=== PATIENT | male | born 1990 | race African-American/Black ===

== ENCOUNTER 2016-04-01 17:37 | Emergency (ER) | payer SELFPAY ==
--- NOTE | 2016-04-01 17:41 | ER Document Report ---
ED Medical Screen (RME) - General Stated Complaint: STOMACH PAIN Mode of Arrival: Ambulatory Information source: Patient Notes: pt c/o abd pain after eating for the past 10 days. Pt denies any fever. TRAVEL OUTSIDE OF THE [place] IN LAST 30 DAYS: No - Related Data Allergies/Adverse Reactions: No Known Allergies Allergy (Verified 11/29/12 18:39) Past Medical History Pulmonary Medical History: Reports: Hx Asthma Musculoskeltal Medical History: Reports Hx Musculoskeletal Trauma - injured right knee in the 3 years ago - Immunizations Immunizations up to date: Yes Hx Diphtheria, Pertussis, Tetanus Vaccination: Yes - unsure of date Physical Exam - Abdominal Tenderness: Tender - epig
--- NOTE | 2016-04-01 18:06 | ER Document Report ---
ED GI/ - General Chief Complaint: Epigastric Pain Stated Complaint: STOMACH PAIN Mode of Arrival: Ambulatory Notes: The patient is a 25-year-old male who presents with epigastric pain for 1.5 weeks whenever he eats. He is also having mild nausea and vomited once. No longer feels nauseous. He is also having bilateral lower back pain for several weeks. He is taking Motrin to help with the back pain, but his gastric pain is worsening. He denies diarrhea, constipation, hematuria, hematemesis, rash, chest pain, shortness of breath, abdominal distention, urinary symptoms, saddle anesthesia, change in bowel or bladder, numbness, tingling or difficulty walking. TRAVEL OUTSIDE OF THE [place] IN LAST 30 DAYS: No - Related Data Allergies/Adverse Reactions: No Known Allergies Allergy (Verified 04/01/16 17:42) Past Medical History - General Information source: Patient - Social History Smoking Status: Unknown if Ever Smoked Chew tobacco use (# tins/day): Yes Frequency of alcohol use: Rare Drug Abuse: None Family History: DM, Malignancy Patient has suicidal ideation: No Patient has homicidal ideation: No Pulmonary Medical History: Reports: Hx Asthma Musculoskeltal Medical History: Reports Hx Musculoskeletal Trauma - injured right knee in the 3 years ago - Immunizations Immunizations up to date: Yes Hx Diphtheria, Pertussis, Tetanus Vaccination: Yes - unsure of date Physical Exam - Vital signs Vitals: Temp Pulse Resp BP Pulse Ox 98.0 F 98 20 144/80 H 98 04/01/16 17:42 04/01/16 17:42 04/01/16 17:42 04/01/16 17:42 04/01/16 17:42 - Notes Notes: REVIEW OF SYSTEMS: CONSTITUTIONAL: -fevers, -chills EENT: Denies eye, ear, throat, or mouth pain or symptoms. Denies nasal or sinus congestion. CARDIOVASCULAR: Denies chest pain, syncope. RESPIRATORY: Denies cough, cold, or chest congestion. Denies shortness of breath, difficulty breathing, or wheezing. GASTROINTESTINAL: +abdominal pain, nausea, vomiting, -diarrhea -constipation. GENITOURINARY: Denies difficulty urinating, painful urination, burning, frequency, or blood in urine. MUSCULOSKELETAL: +back pain, Denies neck pain or joint pain or swelling. SKIN: Denies rash or skin lesions. HEMATOLOGIC: Denies easy bruising or bleeding. LYMPHATIC: Denies swollen, enlarged glands. NEUROLOGICAL: Denies altered mental status or loss of consciousness. Denies headache. Denies weakness or paralysis or loss of use of either side. Denies problems with gait or speech. Denies sensory or motor loss. PSYCHIATRIC: Denies anxiety or stress or depression. ALL OTHER SYSTEMS REVIEWED AND NEGATIVE. Course - Re-evaluation Re-evalutation: Patient's labs and ultrasound are unremarkable. After GI cocktail, patient feels much better. No red flag signs for low back pain. Will treat patient with lidocaine patches and omeprazole with follow-up as primary care physician and GI as needed. - Vital Signs Vital signs: Temp Pulse Resp BP Pulse Ox 98.0 F 98 20 144/80 H 98 04/01/16 17:42 04/01/16 17:42 04/01/16 17:42 04/01/16 17:42 04/01/16 17:42 - Laboratory Result Diagrams: 04/01/16 17:56 04/01/16 17:56 Laboratory results interpreted by me: 04/01/16 17:56 Total Bilirubin 1.5 H Total Protein 8.3 H Albumin 5.1 H Discharge - Discharge Clinical Impression: Epigastric pain Back pain Qualifiers: Back pain location: low back pain Chronicity: chronic Back pain laterality: bilateral Sciatica presence: without sciatica Qualified Code(s): M54.5 - Low back pain; G89.29 - Other chronic pain Condition: Good Disposition: HOME, SELF-CARE Additional Instructions: Gastritis You have an inflammation of the stomach called gastritis. This commonly causes upper abdominal pain, nausea, and vomiting. In severe cases, bleeding of the stomach lining can occur. Gastritis can be caused by bacteria or viruses , alcohol, or stomach-irritating drugs. Begin with sips of clear liquids. Take increasing amounts of fluid over the first 24 hours. Then start small amounts of bland foods (such as dry toast , applesauce, mashed potato). Gradually resume your usual diet. You should take antacids every two hours until the pain has subsided. Acid -suppressing drugs may be prescribed as well. Avoid aspirin, caffeine, tobacco , and alcohol. If the abdominal pain worsens, or there is evidence of major bleeding in the stomach (such as black, tarry stool, bloody or black vomit, or lightheadedness), you should return immediately. Call the doctor if you aren't improved in 24 to 36 hours. LOW BACK PAIN: Three out of every four people will have an episode of disabling back pain during their lifetime. Most commonly the pain is due to straining of the muscles and ligaments in the low back. Usual treatment includes: (1) Rest on a firm surface. Avoid lying on your stomach. (2) Ice pack the painful area. After a few days, gentle heat may be used intermittently to relax the area, or ice packs can be continued. (3) Medication may be needed -- muscle relaxers and antiinflammatory medicines are commonly used. (4) As the back improves, exercises are prescribed to strengthen the back and abdominal muscles. Your doctor will advise you on the proper care for your back at each stage in your recovery. You may be better in a few days -- or healing may take several weeks. If new symptoms of a "herniated disc" (radiation of pain, numbness, or tingling down the back of the leg or weakness in the leg) occur, you should be re-examined. Further testing may be necessary. ICE PACKS: Apply ice packs frequently against the painful area. Many different schedules are recommended, such as "20 minutes on, 20 minutes off" or "one hour ice, two hours rest." If you need to work, you may need to go longer between ice treatments. You should plan to have the area ice packed AT LEAST one fourth of the time. The ice should be applied over the wrap, tape, or splint, or over a layer of cloth -- not directly against the skin. Some ice bags have a built-in cloth and can be put directly on the skin. WARM PACKS: After approximately two days, apply gentle heat (such as a heating pad or hot water bottle) for about 20 to 30 minutes about every two hours -- at least four times daily. Warmth and elevation will help you make a more rapid recovery , and will ease the pain considerably. Do not use HOT heat, and never apply heat for longer than 30 minutes. The continuous heat can invisibly damage skin and muscles -- even when no burn is seen on the surface. Damaged muscles can make you MORE sore. FOLLOW-UP CARE: If you have been referred to a physician for follow-up care, call the physician s office for an appointment as you were instructed or within the next two days. If you experience worsening or a significant change in your symptoms, notify the physician immediately or return to the Emergency Department at any time for re-evaluation. Prescriptions: Omeprazole 20 mg PO BID #30 capsule. Referrals: [facility] [Provider Group] - Follow up as needed
[2016-04-01 18:11] LABS: APPEARANCE,URINE CLEAR; BILIRUBIN,URINE NEGATIVE (NEGATIVE); GLUCOSE, URINE NEGATIVE (NEGATIVE); KETONES,URINE NEGATIVE (NEGATIVE); LEUKOCYTE ESTERASE,URINE NEGATIVE (NEGATIVE); NITRITE,URINE NEGATIVE (NEGATIVE); PROTEIN,URINE NEGATIVE (NEGATIVE); URINE SPECIFIC GRAVITY 1.002; UROBILINOGEN,URINE NEGATIVE mg/dL (<2.0)
[2016-04-01 18:25] LABS: ABSOLUTE EOSINOPHILS # (AUTO) 0.4 10^3/uL (0.0-0.6); ABSOLUTE LYMPHOCYTES (AUTO) 2.3 10^3/uL (0.5-4.7); ABSOLUTE MONOCYTES (AUTO) 0.6 10^3/uL (0.1-1.4); BASOPHILS % (AUTO) 0.5 % (0-2); EOSINOPHILS % (AUTO) 5.2 % (0-6); HEMATOCRIT 43.8 % (37.9-51.0); HEMOGLOBIN 14.9 g/dL (13.5-17.0); HGB HCT DIFFERENCE 0.9; LYMPHOCYTES % (AUTO) 31.6 % (13-45); MEAN CORPUSCULAR HEMOGLOBIN 28.9 pg (27.0-33.4); MEAN CORPUSCULAR VOLUME 85 fl (80-97); MONOCYTES % (AUTO) 8.4 % (3-13); RED BLOOD COUNT 5.15 10^6/uL (4.35-5.55); RED CELL DISTRIBUTION WIDTH 12.8 % (11.5-14.0); SEGMENTED NEUTROPHILS % (AUTO) 54.3 % (42-78); WHITE BLOOD COUNT 7.3 10^3/uL (4.0-10.5)
[2016-04-01 18:29] LABS: ALANINE AMINOTRANSFERASE 50 U/L (21-72); ALBUMIN 5.1 g/dL (3.5-5.0); ALKALINE PHOSPHATASE 78 U/L (38-126); ANION GAP 15 (5-19); ASPARTATE AMINO TRANSFERASE 47 U/L (17-59); BILIRUBIN,TOTAL 1.5 mg/dL (0.2-1.3); BLOOD UREA NITROGEN 8 mg/dL (7-20); CALCIUM 10.2 mg/dL (8.4-10.2); CARBON DIOXIDE 30 mmol/L (22-30); CHLORIDE 100 mmol/L (98-107); CREATININE RESULT 0.87 mg/dL (0.52-1.25); GLUCOSE 101 mg/dL (75-110); LIPASE 47.9 U/L (23-300); SODIUM 144.9 mmol/L (137-145); TOTAL PROTEIN 8.3 g/dL (6.3-8.2)
[2016-04-01] MEDS ORDERED: MAG HYDROX/AL HYDROX/SIMETH SUSP 30 ML UDCUP PO ONE (19:07)
[2016-04-01] MEDS ORDERED: METOCLOPRAMIDE HCL ORAL SOLN 10 MG/10 ML UDCUP PO ONE (19:07)
[2016-04-01] MEDS ORDERED: LIDOCAINE 2% VISCOUS SOLN 20 ML UDCUP PO ONE (19:07)
[2016-04-01 19:52] VITALS: BP 136/95
== END 2016-04-01 19:46 | disposition home or self-care (01) ==
LOC: ER 17:37
DX: R10.13 Epigastric pain (principal); M54.5 Low back pain; G89.29 Other chronic pain; R10.9 Unspecified abdominal pain; R11.2 Nausea with vomiting, unspecified
CPT/HCPCS: 99284; 36415; 83690; 85025; 80053; 81001; 76700; J3490

== ENCOUNTER 2016-11-25 16:11 | Emergency (ER) | payer SELFPAY ==
[2016-11-25] MEDS ORDERED: AZITHROMYCIN 250 MG TABLET PO ONE (16:37)
[2016-11-25] MEDS ORDERED: LIDOCAINE 1% INJ-PF (10 MG/ML) 30 ML SDV INJ ONE (16:37)
[2016-11-25] MEDS ORDERED: CEFTRIAXONE INJ 250 MG VIAL IM ONE (16:37)
[2016-11-25] MEDS ORDERED: PENICILLIN G BENZATHINE 1.2 MILLION UNIT/2 ML DISP.SYRIN IM ONE (16:37)
[2016-11-25] MEDS ORDERED: HYDROCODONE/ACETAMINOPHEN 5-325 MG TABLET PO ONE (16:38)
--- NOTE | 2016-11-25 16:41 | ER Document Report ---
HPI - HPI Patient complains to provider of: Wound to left groin Onset: Other Onset/Duration: Persistent - 4 days Quality of pain: Achy Pain Level: 4 Context: Patient complains of tender wound to left groin for the past 4 days. Patient states that he was squeezing on the lesion and had pus drained from the wound. Patient denies any fever. Associated Symptoms: Other - Left groin wound Exacerbated by: Denies Relieved by: Denies Similar symptoms previously: No Recently seen / treated by doctor: No - ROS ROS below otherwise negative: Yes Systems Reviewed and Negative: Yes All other systems reviewed and negative - CONSTITUTIONAL Constitutional: DENIES: Fever, Chills - NEURO Neurology: DENIES: Weakness - DERM Skin Color: Normal Notes: Draining wound to left groin area Past Medical History - General Information source: Patient - Social History Smoking Status: Never Smoker Frequency of alcohol use: Occasional Drug Abuse: None Occupation: Pest control Family History: DM, Malignancy - Medical History Medical History: Negative Pulmonary Medical History: Reports: Hx Asthma Renal/ Medical History: Denies: Hx Peritoneal Dialysis Musculoskeltal Medical History: Reports Hx Musculoskeletal Trauma - injured right knee in the 3 years ago Surgical Hx: Negative - Immunizations Immunizations up to date: Yes Hx Diphtheria, Pertussis, Tetanus Vaccination: Yes - unsure of date Vertical Provider Document - CONSTITUTIONAL Agree With Documented VS: Yes Exam Limitations: No Limitations General Appearance: WD/WN, No Apparent Distress - INFECTION CONTROL TRAVEL OUTSIDE OF THE [place] IN LAST 30 DAYS: No - HEENT HEENT: Atraumatic, Normocephalic - NECK Neck: Normal Inspection - RESPIRATORY Respiratory: Breath Sounds Normal, No Respiratory Distress O2 Sat by Pulse Oximetry: 97 - CARDIOVASCULAR Cardiovascular: Regular Rate, Regular Rhythm, No Murmur - GI/ABDOMEN Gastrointestinal: Abdomen Soft - REPRODUCTIVE Male Genitalia: Abnormal Inspection - Patient with draining wound to left inguinal area Notes: No scrotal tenderness, no penile drainage or discharge, KALA Govea as standby - MUSCULOSKELETAL/EXTREMETIES Musculoskeletal/Extremeties: MAEW - NEURO Level of Consciousness: Awake, Alert, Appropriate - DERM Integumentary: Warm, Dry, Abscess - left groin Course - Vital Signs Vital signs: Temp Pulse Resp BP Pulse Ox 98.9 F 66 16 141/90 H 97 11/25/16 16:13 11/25/16 16:13 11/25/16 16:13 11/25/16 16:13 11/25/16 16:13 Discharge - Discharge Clinical Impression: Elevated blood pressure reading, Abscess of groin, left Condition: Stable Disposition: HOME, SELF-CARE Instructions: Abscess ([facility]), Azithromycin ([facility]), Oral Narcotic Medication ([facility]) , Rocephin ([facility]), Trimethoprim-Sulfa ([facility]) Additional Instructions: Return immediately for any new or worsening symptoms Followup with your primary care provider, call tomorrow to make a followup appointment Cultures are pending, we will call if you need any different treatment Prescriptions: Hydrocodone/Acetaminophen [Mershon 5-325 Tablet] 1 each PO Q4 PRN #15 tablet PRN Reason: Sulfamethoxazole/Trimethoprim [Bactrim Ds Tablet] 1 each PO BID #20 tablet Forms: Elevated Blood Pressure, Return to Work Referrals: [facility] [Provider Group] - Follow up as needed
[2016-11-25 18:35] VITALS: BP 142/91
[2016-11-28] MEDS ORDERED: ZINC OXIDE 20% OINTMENT 28.35 GM TP ONE (00:01)
== END 2016-11-25 18:38 | disposition home or self-care (01) ==
LOC: ER 16:11
DX: L02.214 Cutaneous abscess of groin (principal); R03.0 Elevated blood-pressure reading, without diagnosis of hypertension
CPT/HCPCS: 99283; 96372; 36415; 87070; 87205; 87075; 87077; 86592; 87186; J3490; J0561; J0696

== ENCOUNTER 2017-02-09 16:01 | Emergency (ER) | payer SELFPAY ==
[2017-02-09 17:49] LABS: ABSOLUTE BASOPHILS # (AUTO) 0.1 10^3/uL (0.0-0.2); ABSOLUTE EOSINOPHILS # (AUTO) 0.2 10^3/uL (0.0-0.6); ABSOLUTE LYMPHOCYTES (AUTO) 2.8 10^3/uL (0.5-4.7); ABSOLUTE MONOCYTES (AUTO) 0.7 10^3/uL (0.1-1.4); ABSOLUTE NEUT (AUTO) 6.7 10^3/uL (1.7-8.2); BASOPHILS % (AUTO) 0.7 % (0-2); EOSINOPHILS % (AUTO) 1.6 % (0-6); HEMATOCRIT 47.4 % (37.9-51.0); HEMOGLOBIN 16.2 g/dL (13.5-17.0); HGB HCT DIFFERENCE 1.2; LYMPHOCYTES % (AUTO) 26.8 % (13-45); MEAN CORPUSCULAR HEMOGLOBIN 29.7 pg (27.0-33.4); MEAN CORPUSCULAR HGB CONC 34.1 g/dL (32.0-36.0); MEAN CORPUSCULAR VOLUME 87 fl (80-97); RED BLOOD COUNT 5.44 10^6/uL (4.35-5.55); RED CELL DISTRIBUTION WIDTH 13.7 % (11.5-14.0); SEGMENTED NEUTROPHILS % (AUTO) 63.9 % (42-78); WHITE BLOOD COUNT 10.4 10^3/uL (4.0-10.5)
--- NOTE | 2017-02-09 17:53 | ER Document Report ---
ED Medical Screen (RME) - General Mode of Arrival: Ambulatory Information source: Patient TRAVEL OUTSIDE OF THE [place] IN LAST 30 DAYS: No - HPI Onset: Other Associated Symptoms: Nausea, Vomiting <GARLAND VALERA - Last Filed: 02/09/17 19:13> <SINDI HAIRSTON - Last Filed: 02/09/17 19:14> - General Chief Complaint: Alcohol Withdrawl Stated Complaint: POSSIBLE DRUG WITHDRAWALS Time Seen by Provider: 02/09/17 17:04 Notes: Patient is a 26 year old male presenting to the emergency department complaining of alcohol withdrawal. Patient states that his last drink was 2 days ago. Patient states that his associated symptoms include nausea, vomiting , and shakes. Patient states that he has been struggling lately to avoid drinking and would like to "not give in tonight" to his addiction. Patient states that his last IV illicit drug use was 3 weeks ago. Patient was curious about inpatient care. (GARLAND VALERA) - Related Data Allergies/Adverse Reactions: No Known Allergies Allergy (Verified 04/01/16 17:42) Past Medical History - General Information source: Patient - Social History Chew tobacco use (# tins/day): Yes Frequency of alcohol use: Heavy Drug Abuse: Heroin, Prescription drugs Pulmonary Medical History: Reports: Hx Asthma Renal/ Medical History: Denies: Hx Peritoneal Dialysis Musculoskeltal Medical History: Reports Hx Musculoskeletal Trauma - injured right knee in the 3 years ago - Immunizations Immunizations up to date: Yes Hx Diphtheria, Pertussis, Tetanus Vaccination: Yes - unsure of date <GARLAND VALERA - Last Filed: 02/09/17 19:13> Review of Systems - Review of Systems Constitutional: No symptoms reported EENT: No symptoms reported Cardiovascular: No symptoms reported Respiratory: No symptoms reported Gastrointestinal: See HPI, Nausea, Vomiting Genitourinary: No symptoms reported Male Genitourinary: No symptoms reported Musculoskeletal: See HPI, Other - shakes Skin: No symptoms reported Hematologic/Lymphatic: No symptoms reported Neurological/Psychological: No symptoms reported -: Yes All other systems reviewed and negative <GARLAND VALERA - Last Filed: 02/09/17 19:13> Physical Exam - General In distress: None - HEENT Head: Normocephalic, Atraumatic Pupils: PERRL - Extremities General upper extremity: Normal ROM General lower extremity: Normal ROM, Other - able to amublate without difficulty Hand: Other - No tremor - Neurological Orientation: AAOx4 - Psychological Associated symptoms: Other - Stutters, evasive when asking questions. <GARLAND VALERA - Last Filed: 02/09/17 19:13> - Vital signs Vitals: Temp Pulse Resp BP Pulse Ox 98.8 F 120 H 16 170/97 H 97 02/09/17 16:06 02/09/17 16:06 02/09/17 16:06 02/09/17 16:06 02/09/17 16:06 Course - Laboratory Result Diagrams: 02/09/17 17:30 02/09/17 17:30 <GARLAND VALERA - Last Filed: 02/09/17 19:13> - Laboratory Result Diagrams: 02/09/17 17:30 02/09/17 17:30 <SINDI HAIRSTON - Last Filed: 02/09/17 19:14> - Vital Signs Vital signs: Temp Pulse Resp BP Pulse Ox 98.8 F 120 H 16 170/97 H 97 02/09/17 16:06 02/09/17 16:06 02/09/17 16:06 02/09/17 16:06 02/09/17 16:06 - Laboratory Laboratory results interpreted by me: 02/09/17 17:30 Sodium 149.2 H Calcium 10.4 H Direct Bilirubin 0.5 H ALT 81 H Total Protein 9.1 H Albumin 5.6 H Serum Alcohol 303 H* Doctor's Discharge <GARLAND VALERA - Last Filed: 02/09/17 19:13> <SINDI HAIRSTON - Last Filed: 02/09/17 19:14> - Discharge Clinical Impression: Polysubstance abuse Alcohol withdrawal Qualifiers: Complication of substance-induced condition: uncomplicated Qualified Code(s): F10.230 - Alcohol dependence with withdrawal, uncomplicated Disposition: HOME, SELF-CARE Additional Instructions: You have been sent home on medication to help withdraw from alcohol. You should only start taking this medication and discontinue alcohol if you are seroius about quitting alcohol. This will not completely remove all your symptoms from withdrawal should make it so that your symptoms are more manageable. You need to return to the emergency room immediately if you pass out, or vomiting so severely your unable to keep anything down, start hallucinate, or have any other symptoms that are of concern to you. You need to go to an inpatient program and should speak with your primary care doctor regarding these resources. How to take the librium to come off alcohol. DO NOT DRINK ANY ALCOHOL WHILE USING THIS MEDICATION Day 1-3: 75mg PO TID Day 4-6: 50mg PO TID Day 7-9: 25mg PO TID Day 10-12: 25mg PO BID Day 13-15: 25mg PO daily PRN Prescriptions: Chlordiazepoxide HCl [Librium 25 mg Capsule] 1 cap PO ASDIR #70 capsule Scribe Documentation - Scribe Written by Bernarda:: Bernarda Baker, 02/09/2017 18:07 acting as scribe for :: Makayla <GARLAND VAELRA - Last Filed: 02/09/17 19:13>
[2017-02-09 18:07] LABS: APPEARANCE,URINE CLEAR; BILIRUBIN,URINE NEGATIVE (NEGATIVE); GLUCOSE, URINE NEGATIVE (NEGATIVE); KETONES,URINE NEGATIVE (NEGATIVE); LEUKOCYTE ESTERASE,URINE NEGATIVE (NEGATIVE); NITRITE,URINE NEGATIVE (NEGATIVE); PROTEIN,URINE NEGATIVE (NEGATIVE); URINE SPECIFIC GRAVITY 1.001; UROBILINOGEN,URINE NEGATIVE mg/dL (<2.0)
[2017-02-09 18:08] LABS: ALANINE AMINOTRANSFERASE 81 U/L (21-72); ALBUMIN 5.6 g/dL (3.5-5.0); ALKALINE PHOSPHATASE 94 U/L (38-126); ANION GAP 18 (5-19); ASPARTATE AMINO TRANSFERASE 54 U/L (17-59); BILIRUBIN,DIRECT 0.5 mg/dL (0.0-0.4); BILIRUBIN,TOTAL 1.3 mg/dL (0.2-1.3); BLOOD UREA NITROGEN 9 mg/dL (7-20); CALCIUM 10.4 mg/dL (8.4-10.2); CARBON DIOXIDE 29 mmol/L (22-30); CHLORIDE 102 mmol/L (98-107); CREATININE RESULT 0.93 mg/dL (0.52-1.25); GLUCOSE 93 mg/dL (75-110); POTASSIUM 4.2 mmol/L (3.6-5.0); SODIUM 149.2 mmol/L (137-145); TOTAL PROTEIN 9.1 g/dL (6.3-8.2)
[2017-02-09 18:20] LABS: URINE BARBITURATES SCREEN UNCONFIRMED POSITIVE; URINE METHADONE SCREEN NEGATIVE; URINE OPIATES LOW NEGATIVE; URINE PHENCYCLIDINE SCREEN NEGATIVE
[2017-02-09 18:45] LABS: ALCOHOL 303 mg/dL (NONE DETECTED)
[2017-02-09] MEDS ORDERED: DIAZEPAM 5 MG TABLET PO ONE (19:09)
--- NOTE | 2017-02-09 19:13 | ER Document Report ---
ED General - General Chief Complaint: Alcohol Withdrawl Stated Complaint: POSSIBLE DRUG WITHDRAWALS Time Seen by Provider: 02/09/17 17:04 Mode of Arrival: Ambulatory Notes: Patient is a 26-year-old male with a past medical history of polysubstance abuse who presents with concerns of alcohol withdrawal. Patient does appear to be mildly intoxicated at time of presentation also appears to be extremely anxious. Patient states he came to the emergency department tonight as he does not want to lose his marriage and that his is planning to leave him if he does not become sober. Patient has a history of prior presentations for withdrawal as well as involuntary commitments for suicidal ideation secondary to polysubstance abuse. Patient states that he has begun to follow with the [facility] for consideration of rehabilitation programs. Patient states that when he tries to stop drinking he develops agitation, shakiness, nausea and vomiting. He has never had a seizure in the setting of withdrawals or delirium tremens. He denies any additional substance abuse other than opiates or alcohol. He is uncertain of what the triggers are for his drinking behaviors and has not found anything that helps him to stop drinking. TRAVEL OUTSIDE OF THE [place] IN LAST 30 DAYS: No - Related Data Allergies/Adverse Reactions: No Known Allergies Allergy (Verified 04/01/16 17:42) Home Medications: Current Home Medications No Home Medications 02/09/17 [History] Past Medical History - General Information source: Patient - Social History Smoking Status: Current Some Day Smoker Chew tobacco use (# tins/day): Yes Frequency of alcohol use: Heavy Drug Abuse: Cocaine, Heroin, Prescription drugs Lives with: Spouse/Significant other Family History: DM, Malignancy Patient has suicidal ideation: No Patient has homicidal ideation: No Pulmonary Medical History: Reports: Hx Asthma Renal/ Medical History: Denies: Hx Peritoneal Dialysis Musculoskeltal Medical History: Reports Hx Musculoskeletal Trauma - injured right knee in the 3 years ago - Immunizations Immunizations up to date: Yes Hx Diphtheria, Pertussis, Tetanus Vaccination: Yes - unsure of date Review of Systems - Review of Systems Notes: Constitutional: Negative for fever. HENT: Negative for sore throat. Eyes: Negative for visual changes. Cardiovascular: Negative for chest pain. Respiratory: Negative for shortness of breath. Gastrointestinal: Negative for abdominal pain, vomiting or diarrhea. Genitourinary: Negative for dysuria. Musculoskeletal: Negative for back pain. Skin: Negative for rash. Neurological: Negative for headaches, weakness or numbness. 10 point ROS negative except as marked above and in HPI. Physical Exam - Vital signs Vitals: Temp Pulse Resp BP Pulse Ox 98.8 F 120 H 16 170/97 H 97 02/09/17 16:06 02/09/17 16:06 02/09/17 16:06 02/09/17 16:06 02/09/17 16:06 Interpretation: Tachycardic Notes: PHYSICAL EXAMINATION: GENERAL: Anxious no acute distress HEAD: Atraumatic, normocephalic. EYES: Pupils equal round and reactive to light, extraocular movements intact, sclera anicteric, conjunctiva are normal. ENT: nares patent, oropharynx clear without exudates. Moderately dry mucous membranes. NECK: Normal range of motion, supple without lymphadenopathy LUNGS: Breath sounds clear to auscultation bilaterally and equal. No wheezes rales or rhonchi. HEART: Regular rate and rhythm without murmurs ABDOMEN: Soft, nontender, normoactive bowel sounds. No guarding, no rebound. No masses appreciated. EXTREMITIES: Normal range of motion, no pitting or edema. No cyanosis. NEUROLOGICAL: No focal neurological deficits. Moves all extremities spontaneously and on command. PSYCH: Anxious, tearful SKIN: Warm, Dry, normal turgor, no rashes or lesions noted. Course - Re-evaluation Re-evalutation: 02/09/17 19:11 Patient presents with polysubstance abuse, stating a desire to withdrawal although was acutely intoxicated here in the emergency department. He is here with his . He denies any acute suicidal homicidal ideation. No acute medical complaints. I spent 25 minutes the bedside discussing with the patient how he will proceed with a Librium taper to come off and the will control that medication at all times. She has confirmed to me that she will not give the patient that medication to control and it only she will dispense the medication. Patient is planning to go to his first AA meeting elly. I have again discu At this time will discharge with return precautions and follow-up recommendations. Verbal discharge instructions given a the bedside and opportunity for questions given. Medication warnings reviewed. Patient is in agreement with this plan and has verbalized understanding of return precautions and the need for primary care follow-up in the next 24-72 hours. The patient at length - Vital Signs Vital signs: Temp Pulse Resp BP Pulse Ox 98.5 F 95 16 144/87 H 97 02/09/17 19:24 02/09/17 19:24 02/09/17 16:06 02/09/17 19:24 02/09/17 19:24 - Laboratory Result Diagrams: 02/09/17 17:30 02/09/17 17:30 Laboratory results interpreted by me: 02/09/17 17:30 Sodium 149.2 H Calcium 10.4 H Direct Bilirubin 0.5 H ALT 81 H Total Protein 9.1 H Albumin 5.6 H Serum Alcohol 303 H* Discharge - Discharge Clinical Impression: Polysubstance abuse Alcohol withdrawal Qualifiers: Complication of substance-induced condition: uncomplicated Qualified Code(s): F10.230 - Alcohol dependence with withdrawal, uncomplicated Condition: Fair Disposition: HOME, SELF-CARE Additional Instructions: You have been sent home on medication to help withdraw from alcohol. You should only start taking this medication and discontinue alcohol if you are seroius about quitting alcohol. This will not completely remove all your symptoms from withdrawal should make it so that your symptoms are more manageable. You need to return to the emergency room immediately if you pass out, or vomiting so severely your unable to keep anything down, start hallucinate, or have any other symptoms that are of concern to you. You need to go to an inpatient program and should speak with your primary care doctor regarding these resources. How to take the librium to come off alcohol. DO NOT DRINK ANY ALCOHOL WHILE USING THIS MEDICATION Day 1-3: 75mg PO TID Day 4-6: 50mg PO TID Day 7-9: 25mg PO TID Day 10-12: 25mg PO BID Day 13-15: 25mg PO daily PRN
[2017-02-09 19:27] VITALS: BP 144/87
== END 2017-02-09 19:27 | disposition home or self-care (01) ==
LOC: ER 16:01
DX: F19.10 Other psychoactive substance abuse, uncomplicated (principal); F10.230 Alcohol dependence with withdrawal, uncomplicated; F17.200 Nicotine dependence, unspecified, uncomplicated
CPT/HCPCS: 36415; 80053; 80307; 81001; 85025; 99284

== ENCOUNTER 2017-02-17 23:31 | Emergency (ER) | payer SELFPAY ==
[2017-02-17] MEDS ORDERED: NALOXONE HCL INJ/PF 0.4 MG/1 ML SDV ONE (23:41)
[2017-02-17] MEDS ORDERED: NALOXONE HCL INJ/PF 0.4 MG/1 ML SDV IV ONE (23:48)
--- NOTE | 2017-02-17 23:56 | ER Document Report ---
ED General - General Mode of Arrival: Stretcher Information source: Emergency Med Personnel TRAVEL OUTSIDE OF THE [place].S. IN LAST 30 DAYS: No <GARLAND VALERA - Last Filed: 02/18/17 01:26> <SINDI HAIRSTON - Last Filed: 02/18/17 06:48> - General Stated Complaint: ALTERED MENTAL STATUS Time Seen by Provider: 02/17/17 23:33 Notes: Patient is a 26 year old male with a history of alcohol and drug abuse presenting to emergency department via ems for possible for drug overdose. EMS states that the patient's mother called EMS after the patient appeared to be in an altered mental status sitting on the couch. EMS states that the patient was able to state he used heroin prior to arrival. At bedside patient could not answer any questions and was sleepy and agitated. Patient is prescribed Chloraidzepoxied 25mg and Amitriptyline 50 mg. (GARLAND VALERA) At time of examination there were 11 pills missing from the amitriptyline bottle and there should have only been two missing, there were 16 pills missing from the chlordiazepoxide bottle and he should have only been 15 missing. Mother states she has been administering all of his medications however she also notes that they are not locked up and he could have gotten into them after they went to bed this evening. (SINDI HAIRSTON) - Related Data Allergies/Adverse Reactions: No Known Allergies Allergy (Verified 04/01/16 17:42) Past Medical History - General Information source: Emergency Med Personnel - Social History Smoking Status: Unknown if Ever Smoked Family History: DM, Malignancy Pulmonary Medical History: Reports: Hx Asthma Musculoskeltal Medical History: Reports Hx Musculoskeletal Trauma - injured right knee in the 3 years ago - Immunizations Immunizations up to date: Yes Hx Diphtheria, Pertussis, Tetanus Vaccination: Yes - unsure of date <GARLAND VALERA - Last Filed: 02/18/17 01:26> Review of Systems - Review of Systems -: Yes ROS unobtainable due to patient's medical condition Constitutional: No symptoms reported EENT: No symptoms reported Cardiovascular: No symptoms reported Respiratory: No symptoms reported Gastrointestinal: No symptoms reported Genitourinary: No symptoms reported Male Genitourinary: No symptoms reported Musculoskeletal: No symptoms reported Skin: No symptoms reported Hematologic/Lymphatic: No symptoms reported Neurological/Psychological: No symptoms reported -: Yes All other systems reviewed and negative <GARLAND VALERA - Last Filed: 02/18/17 01:26> Physical Exam <GARLAND VALERA - Last Filed: 02/18/17 01:26> <SINDI HAIRSTON - Last Filed: 02/18/17 06:48> - Vital signs Vitals: Resp Pulse Ox 22 H 97 02/18/17 00:20 02/18/17 00:20 - Notes Notes: GENERAL: Altered, somnolent. Random spontaneous movements. HEAD: Normocephalic, atraumatic. EYES: Pupils dilated. Conjunctiva injected and reactive bilaterally. Extraocular movements intact. ENT: Oral mucosa moist, tongue midline. NECK: Full range of motion. Supple. Trachea midline. LUNGS: Clear to auscultation bilaterally, no wheezes, rales, or rhonchi. No respiratory distress. HEART: Regular rate and rhythm. No murmurs, gallops, or rubs. ABDOMEN: Soft, non-tender. Non-distended. Bowel sounds present in all 4 quadrants. EXTREMITIES: Moves all 4 extremities spontaneously. No edema, radial and dorsalis pedis pulses 2/4 bilaterally. No cyanosis. NEUROLOGICAL: Altered, somnolent. Arouses to voice and sternal rub, open eyes wide and immediately closes them. Squeezes fingers on command. Does not move lower extremities on commands. PSYCH: Altered. Agitated. SKIN: Warm, dry, normal turgor. No rashes or lesions noted. (GARLAND VALERA) Course - Laboratory Result Diagrams: 02/18/17 00:52 02/18/17 00:08 <GARLAND VALERA - Last Filed: 02/18/17 01:26> - Laboratory Result Diagrams: 02/18/17 00:52 02/18/17 00:08 <SINDI HAIRSTON - Last Filed: 02/18/17 06:48> - Re-evaluation Re-evalutation: 02/18/17 05:38 CBC unremarkable, CMP unremarkable, acetaminophen, salicylates and alcohol all undetectable, urinalysis still has not been provided for urine drug screen. EKG does not show any QRS or QT prolongation. Patient rechecked, now able to be awakened to verbal stimuli, after a few minutes he is oriented to person place and time, initially he thought he was still in [facility] in [place]. Patient initially denied using any drugs stated that he simply drank whiskey until he passed out, after I discussed with him that there was no alcohol detectable in his bloodstream he stated that he had also taken phenobarbital this evening, states that his dog is prescribed phenobarbital for his seizures and he took some of his dogs phenobarbital. Patient denies using any narcotics despite the fact that Narcan helped to awaken him earlier in the evening. Patient states that he may have taken some extra amitriptyline but he is not sure. Also told me that he is only taking the amitriptyline as prescribed despite the fact that there are 10 amitriptyline missing from his bottle compared to what he should have. Patient states that he was not trying to get high he was just trying to catch a buzz. Denies suicidal ideation, denies trying to kill himself. States that he does not think that going back to rehab would help him because he is "of an age where smoking weed is cool" told patient that his mother was quite angry with this hospital for discharging him previously because she feels that he is suicidal and that he should have been sent back to rehab. Patient does not feel he would benefit from rehab because he wants to drink sometimes. At this time I do not feel patient meets IVC criteria however I do think it is prudent to have the mental health team evaluate him due to his recent discharge from this facility and from rehab. Patient is medically stable for transfer or discharge. Poison control was consulted, recommended 6 hours of observation. This is passed. (SINDI HAIRSTON) - Vital Signs Vital signs: Temp Pulse Resp BP Pulse Ox 18 148/87 H 98 02/18/17 00:21 02/18/17 00:21 02/18/17 00:21 - Laboratory Laboratory results interpreted by me: 02/18/17 02/18/17 00:08 00:52 Hgb 13.4 L Sodium 145.4 H Salicylates < 1.0 L Acetaminophen < 10 L - EKG Interpretation by Me Additional EKG results interpreted by me: 02/18/17 06:36 EKG shows sinus tachycardia at a rate of 103, normal axis, normal intervals, no ST segment elevations or depressions, no abnormal T-wave inversions per my interpretation. (SINDI HAIRSTON) Discharge <GARLAND VALERA - Last Filed: 02/18/17 01:26> <SINDI HAIRSTON - Last Filed: 02/18/17 06:48> - Discharge Clinical Impression: Polysubstance abuse, Tobacco abuse, Tobacco abuse counseling Altered mental status Qualifiers: Altered mental status type: stupor Qualified Code(s): R40.1 - Stupor Amitriptyline overdose Qualifiers: Encounter type: initial encounter Injury intent: undetermined intent Qualified Code(s): T43.014A - Poisoning by tricyclic antidepressants, undetermined, initial encounter Phenobarbital overdose Qualifiers: Encounter type: initial encounter Injury intent: undetermined intent Qualified Code(s): T42.3X4A - Poisoning by barbiturates, undetermined, initial encounter Hypertension Qualifiers: Hypertension type: essential hypertension Qualified Code(s): I10 - Essential ( primary) hypertension Condition: Stable Disposition: HOME, SELF-CARE Forms: Elevated Blood Pressure, Smoking Cessation Education Scribe Attestation: 02/18/17 06:48 I personally performed the services described in the documentation, reviewed and edited the documentation which was dictated to the scribe in my presence, and it accurately records my words and actions. (SINDI HAIRSTON) Scribe Documentation - Scribe Written by Scribshanda:: Bernarda Baker, 02/18/2017 01:02 acting as scribe for :: Makayla <GARLAND VALERA - Last Filed: 02/18/17 01:26>
[2017-02-18 01:05] LABS: ABSOLUTE BASOPHILS # (AUTO) 0.1 10^3/uL (0.0-0.2); ABSOLUTE EOSINOPHILS # (AUTO) 0.3 10^3/uL (0.0-0.6); ABSOLUTE LYMPHOCYTES (AUTO) 2.6 10^3/uL (0.5-4.7); ABSOLUTE MONOCYTES (AUTO) 0.6 10^3/uL (0.1-1.4); ABSOLUTE NEUT (AUTO) 3.5 10^3/uL (1.7-8.2); BASOPHILS % (AUTO) 0.8 % (0-2); EOSINOPHILS % (AUTO) 4.5 % (0-6); HEMATOCRIT 38.9 % (37.9-51.0); HEMOGLOBIN 13.4 g/dL (13.5-17.0); HGB HCT DIFFERENCE 1.3; LYMPHOCYTES % (AUTO) 36.6 % (13-45); MEAN CORPUSCULAR HEMOGLOBIN 30.1 pg (27.0-33.4); MEAN CORPUSCULAR HGB CONC 34.5 g/dL (32.0-36.0); MEAN CORPUSCULAR VOLUME 87 fl (80-97); MONOCYTES % (AUTO) 9.1 % (3-13); RED BLOOD COUNT 4.46 10^6/uL (4.35-5.55); RED CELL DISTRIBUTION WIDTH 13.2 % (11.5-14.0); WHITE BLOOD COUNT 7.1 10^3/uL (4.0-10.5)
[2017-02-18 02:01] LABS: ALANINE AMINOTRANSFERASE 51 U/L (21-72); ALBUMIN 4.7 g/dL (3.5-5.0); ALKALINE PHOSPHATASE 66 U/L (38-126); ANION GAP 15 (5-19); ASPARTATE AMINO TRANSFERASE 24 U/L (17-59); BILIRUBIN,DIRECT 0.4 mg/dL (0.0-0.4); BILIRUBIN,TOTAL 0.6 mg/dL (0.2-1.3); BLOOD UREA NITROGEN 11 mg/dL (7-20); CALCIUM 9.9 mg/dL (8.4-10.2); CARBON DIOXIDE 25 mmol/L (22-30); CHLORIDE 105 mmol/L (98-107); CREATININE RESULT 1.11 mg/dL (0.52-1.25); GLUCOSE 103 mg/dL (75-110); POTASSIUM 3.6 mmol/L (3.6-5.0); SODIUM 145.4 mmol/L (137-145); TOTAL PROTEIN 7.5 g/dL (6.3-8.2)
[2017-02-18 02:09] LABS: ALCOHOL < 10 mg/dL (NONE DETECTED)
[2017-02-18 06:16] LABS: APPEARANCE,URINE CLEAR; BILIRUBIN,URINE NEGATIVE (NEGATIVE); GLUCOSE, URINE NEGATIVE (NEGATIVE); KETONES,URINE NEGATIVE (NEGATIVE); LEUKOCYTE ESTERASE,URINE NEGATIVE (NEGATIVE); NITRITE,URINE NEGATIVE (NEGATIVE); PROTEIN,URINE NEGATIVE (NEGATIVE); URINE SPECIFIC GRAVITY 1.017; UROBILINOGEN,URINE NEGATIVE mg/dL (<2.0)
[2017-02-18 07:43] LABS: URINE BARBITURATES SCREEN UNCONFIRMED POSITIVE; URINE METHADONE SCREEN NEGATIVE; URINE OPIATES LOW NEGATIVE; URINE PHENCYCLIDINE SCREEN NEGATIVE
--- NOTE | 2017-02-18 10:32 | ER Document Report ---
Doctor's Note Notes: 02/18/17 10:31 Patient has been seen and evaluated resting comfortably no acute distress. Laboratory values previous provider note and vital signs have been evaluated. Patient otherwise looks to be stable for disposition/transfer.
[2017-02-18 11:40] VITALS: BP 146/91
--- NOTE | 2017-02-18 13:42 | PSYCHOLOGICAL NOTE ---
Psych Note - Psych Note Psych Note: Patient is a 26 year old male who presented to the ED last evening via EMS after mother called them due to patient sitting on the couch with AMS. ED Physician petitioned for IVC given patient came in for an OD and his presentation. Patient was sleeping. He required his name stated loudly several times and gentle shake of the leg to wake up. He was groggy but able to answer questions. He immediately went for his breakfast tray. He asked if he was in the hospital and how he got here. He stated he took too many of his sleeping pills and described them as little round pills. He denied SI/HI. He stated his mother has been in charge of his medications to include administration, he was upset because he felt like a child, so she had just started allowing him to have access to the medications. He identified he has been to [facility] and the [facility] for detox in the past. He denied Heroin use. He inquired about getting prescribed Suboxone or Methadone. It was explained those are for opiate addiction and he does not have any in his system. He then mentioned he took Wellbutrin before (never prescribed it though) and it helped to "calm his nerves and with sleep." He noted these were his major concerns. He stated he wants help with his addiction but does not want or think he needs detox. He stated "I can stop on my own." He denied previous MH hospitalizations. When it came to picking a SA treatment option patient kept saying he can't miss work which was the same reason he provided for not following up with [facility] on an outpatient level. UDS positive for benzodiazepines (the prescribed Librium) and Barbiturates (nothing prescribed that would make him positive for this). Patient was alert and oriented to person and place once awake. Mood was lethargic and groggy. He was calm and cooperative. He denied SI/HI. He did not appear to be responding to internal stimuli AEB fair eye contact, answering questions appropriately when addressed, and staying on topic. Thought processes were linear. Conversational speech was soft in tone but otherwise WNL for rate and prosody. Intellectual abilities are estimated to be average. Insight, judgment and impulse control are fair AEB willingness to hear about SA treatment options. Overnight ED Physician coordinated care with this clinician. She stated patient informed her he took some of his dog's Phenobarbital (prescribed for seizures). She identified patient told her no to drug rehab because he wants to be able to drink on occasion and he commented how his age is typical for marijuana use. She stated Narcan was effective with patient and he asked for some to take home. Review of chart indicated patient was seen by the [facility] Behavioral Health team on 01/29/2017 where [facility] was involved due to SA and SI. At that time he reported he had just been to the [facility] the week before, was discharged, and immediately went back to drinking alcohol. He said at that time his drug of choice was Heroin, it had been months since he used it, and this addiction started with Percocet which he had reported using 1-2 weeks prior to the 01/29/2017 ED visit.He was discharged to follow up with [facility] at noon (he and his stated he already had an appointment). Patient gave verbal consent to contact his mother, Halie Booth ([phone]). She stated patient has been staying with them (parents) under the condition if he used substances again he would no longer be welcome. She stated patient did go to 's house to slat pickler some belongings the other day, however told mother the dog is not prescribed Phenobarbital. She stated noted she saw some white pills patient had. She noted that [facility] had been involved previously, got him accepted to a place in [place] for SA treatment, but patient was discharged from [facility] at that time and did not follow through. She commented that father saw some pills that were white with red stripes and some that were green and purple with dots. She mentioned [facility] as a recovery program and felt that was what patient needed. 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 Recommendation to rescind IVC. He does not meet [place] [address] IVC criteria. He denied SI/HI, has a poly- substance problem by history, and there was no observed psychosis. Patient and mother education on different level of SA treatment and how it is voluntary. Provided patient with outpatient resource list with emphasis on both [facility] numbers for detox placement, emphasis on [facility] for intensive outpatient SA treatment and medication management (documented [facility], documented walk-ins cam take place M-F from [phone] ). Also provided homeless prison information since mother said he was not welcome back. She stated there are friends and family that would probably take him in. He was encouraged to make phone calls before discharge. Also provided application for [facility], as well as [facility] in [place] with direct phone number to [facility] for referral. Mother aware of plan to discharge and patient would have resource information. Consulted with Dr. Johnson regarding the management and care of patient. ED Physician in agreement with recommendations.
--- NOTE | 2017-02-19 06:10 | EKG REPORT ---
SEVERITY:- OTHERWISE NORMAL ECG - SINUS TACHYCARDIA : Confirmed by: Chelsea King MD 19-Feb-2017 06:09:16
== END 2017-02-18 11:39 | disposition home or self-care (01) ==
LOC: ER 23:31
DX: T42.3X4A Poisoning by barbiturates, undetermined, initial encounter (principal); I10 Essential (primary) hypertension; R05 Cough; R40.1 Stupor; F19.10 Other psychoactive substance abuse, uncomplicated; F17.200 Nicotine dependence, unspecified, uncomplicated
CPT/HCPCS: 93005; 99285; 96374; 36415; 80307 ×4; 85025; 80053; 81001; 93010; J2310

== ENCOUNTER 2017-02-18 15:02 | Emergency (ER) | payer SELFPAY ==
--- NOTE | 2017-02-18 16:44 | ER Document Report ---
ED Psych Disorder / Suicide - General Mode of Arrival: Ambulatory Information source: Patient, Parent, H Records Cannot obtain history due to: Altered mental status TRAVEL OUTSIDE OF THE [place] IN LAST 30 DAYS: No <MARLYS SHARPE - Last Filed: 02/18/17 23:03> <ROBERT HONG - Last Filed: 02/19/17 07:15> <PINA ROBERTS - Last Filed: 02/19/17 07:23> - General Chief Complaint: Psych Problem Stated Complaint: ALTERED MENTAL STATUS Time Seen by Provider: 02/18/17 15:40 Notes: This 26-year-old male patient has a long history of multiple substance abuse including heroin, Suboxone or Subutex, alcohol, cocaine, marijuana, barbiturates , benzodiazepines. He was seen here on 01/28/2017 after being released from a detox facility, he was quite EtOH intoxicated with drug screens positive for cocaine, marijuana, barbiturates. He was discharged from here to [facility], where he went that one time and then failed to continue to follow-up. The patient came here on 02/09/2017 complaining of alcohol withdrawal and wanting treatment. His alcohol level was 303 mg percent and was positive for cocaine at that time. He was discharged with prescription for Librium. The patient returned here yesterday when he was found to be drowsy and somnolent at home, it appears he had taken an overdose of Elavil to "catch a buzz". He was discharged about 11:45 AM today, his grandfather picked him up. By history the grandfather took him straight to the grandmother's house where his mother was and arrived there shortly after 12 noon today. A couple of hours later, he was found to be staggering in the house, was trying to eat pumpkin pie and dropping it out of his mouth on the floor, was talking to people who were not present. According to the mother he possibly took some of his Librium but did not have access to any of his other medications as she had control of these. She does not think there were other medications stashed at the house that he could have accessed. In the emergency room, he seems drowsy is arousable. He slurs his speech, he brings up topics that are unrelated to the current discussions. His eyes are slightly dilated, do constrict but not nearly as much as they should with direct light. He frequently speaks and and unintelligible, slurred type pattern and sometimes just seems to babble. At one point I inadvertently dropped the otoscope from my hand and it fill to the stretcher adjacent to his leg and rolled over where I caught it at the edge of the bed. As this occurred, he looked down quickly to the right and seemed to focus on the object dropped and to me seemed to do this quicker than I can. I am not sure if his behavior is all mental, organic, or partially faking. His disposition is complicated by the fact that the mother will not let him come back home due to his ongoing drug abuse, and that leaves him homeless at this point. (MARLYS SHARPE) - Related Data Allergies/Adverse Reactions: No Known Allergies Allergy (Verified 02/18/17 15:17) Past Medical History - Social History Family History: DM, Malignancy Pulmonary Medical History: Reports: Hx Asthma Renal/ Medical History: Denies: Hx Peritoneal Dialysis Musculoskeltal Medical History: Reports Hx Musculoskeletal Trauma - injured right knee in the 3 years ago - Immunizations Immunizations up to date: Yes Hx Diphtheria, Pertussis, Tetanus Vaccination: Yes - unsure of date <MARLYS SHARPE - Last Filed: 02/18/17 23:03> - Social History Smoking Status: Current Every Day Smoker <PINA ROBERTS - Last Filed: 02/19/17 07:23> - Vital signs Vitals: Pulse Resp BP Pulse Ox 101 H 16 137/81 H 99 02/18/17 15:17 02/18/17 15:17 02/18/17 15:17 02/18/17 15:17 Course - Laboratory Result Diagrams: 02/18/17 17:15 02/18/17 17:15 - Diagnostic Test Radiology reviewed: Image reviewed, Reports reviewed - CT scan of the brain is read as normal. - EKG Interpretation by Me EKG shows normal: Sinus rhythm, Rosalia, Intervals, QRS Complexes, ST-T Waves Rate: Normal - 87 Rhythm: NSR When compared to previous EKG there are: No significant change <MARLYS SHARPE - Last Filed: 02/18/17 23:03> - Laboratory Result Diagrams: 02/18/17 17:15 02/18/17 17:15 <ROBERT HONG - Last Filed: 02/19/17 07:15> - Laboratory Result Diagrams: 02/18/17 17:15 02/18/17 17:15 <PINA ROBERTS - Last Filed: 02/19/17 07:23> - Re-evaluation Re-evalutation: 02/18/17 18:55 Patient's lab work is unremarkable. TSH is 0.42, that is slightly below the normal range. The drug screen is unchanged from this morning, alcohol level remains undetectable. The CT scan of the head is unremarkable. At this point his clinical picture is confusing if this is not due to taking additional medication somehow in the interval after his discharge, or that this is not voluntary behavior. He will be left to sleep here tonight and reevaluate in the morning to be sure we are not missing something significant. (MARLYS SHARPE) 02/19/17 07:22 Pt is acting similarly to before. His head CT and TSH levels do not show any acute abnormalities. His UDS is similar to his prior evaluation yesterday. He has a court date at 9:00 this morning. Evaluated by mental health and patient is cleared psychiatrically. He denies SI or HI. Suspect a component of secondary gain due to homelessness. (PINA ROBERTS) - Vital Signs Vital signs: Temp Pulse Resp BP Pulse Ox 98.2 F 84 18 135/70 H 100 02/19/17 04:25 02/19/17 04:25 02/19/17 04:25 02/19/17 04:25 02/19/17 04:25 - Laboratory Laboratory results interpreted by me: 02/18/17 02/18/17 17:15 17:15 Sodium 145.3 H TSH 0.42 L Salicylates < 1.0 L Acetaminophen < 10 L Discharge <MARLYS SHARPE - Last Filed: 02/18/17 23:03> <ROBERT HONG - Last Filed: 02/19/17 07:15> <PINA ROBERTS - Last Filed: 02/19/17 07:23> - Discharge Clinical Impression: Polysubstance abuse Altered mental status, unspecified Qualifiers: Altered mental status type: unspecified Qualified Code(s): R41.82 - Altered mental status, unspecified Condition: Stable Disposition: HOME, SELF-CARE Additional Instructions: Hallucinations/Psychosis/Lethargy You seem to be having hallucinations. Hallucinations are seeing, hearing, or feeling things that don't exist. These symptoms commonly occur with drug abuse and schizophrenia. Drugs like PCP, LSD, MDMA, peyote, and "psychedelic mushrooms" can cause frightening hallucinations. Users of methamphetamine or crack cocaine often see and feel bugs crawling on their skin. Patients with schizophrenia may hear voices that no one else can hear. The delusions of schizophrenia often involve conspiracies or relationships that are not real. When symptoms are due to drug abuse, the mental state usually improves as the drug wears off. Someone you trust should be with you until you are better, to protect you and calm your fears. Tranquilizer medicine is helpful at controlling hallucinations, anxiety, and deluded thoughts. Get a proper diet and enough sleep. Most patients do very well when they get proper medical treatment and social support. You should return at once if your symptoms get worse, if you are having suicidal thoughts or thoughts about hurting others, or if you feel that you are in danger. FOLLOW-UP CARE: You should follow up as a walk in this morning to [facility], call [facility] back and ask for referral to [facility] substance abuse recovery program in [place], and call mobile crisis to assist with voluntary substance abuse treatment. If you experience worsening or a significant change in your symptoms, notify the physician immediately, call either mobile crisis numbers or return to the Emergency Department at any time for re-evaluation. Referrals: DIANNA RICHTER MD [Primary Care Provider] - Follow up as needed [facility] [Outside] - 02/19/17 9:00 am
--- NOTE | 2017-02-18 17:22 | PSYCHOLOGICAL NOTE ---
Psych Note - Psych Note Psych Note: Patient is a 26 year old male who presented to the ED today via his mother for auditory and visual hallucinations. Patient was just discharged this afternoon at 1139 after spending the night for a likely overdose of Elavil which patient stated he took because he could not sleep. Per attending nurse from morning discharge she walked patient to check out and grandfather was out front waiting on him. The attending nurse from this morning stated they had dialogue conversation and he was alert. Patient was sleeping during most of evaluation. The ED Physician woke patient up to do his medical evaluation. While he was using the instrument to check patient's eyes it fell and patient's reflexes were on par. Thoughts were tangential as he went from talking about an Aunt that had a box full of medications like Morphine before she , someone got shot in the face, and he asked about what happens to people's limbs when they have amputations. He stated he had been prescribed Subutex previously but has not been on it in months. He reported he took his Librium, smoked a cigarette, and has chewing tobacco but denied taking anything else since his earlier discharge. Patient's mother, Ms Booth, was at bedside. She identified patient came to his grandmother's where mother was after grandfather picked him up from [facility] ED earlier. She stated patient was staggering, had slurred speech, was trying to eat his favorite pie and got it all over himself and the floor, was saying "hey you look come here" to people that weren't there, and was having dialogue conversation with himself. She explained that he usually is well kept hygiene sanders and said it has been bad lately. She stated he took 3 of his 25MG Librium. She stated that is all he had access to because she has all other medications. She stated he did call the [facility] number to get a referral to [facility] and was instructed to call back tomorrow between [phone]. She stated she was concerned about his presentation so called [facility] who instructed mother to bring patient to the ED given his discharge instructions said to return to ED if symptoms do not get better or worsen. Mother described patient as smart. She stated he served in the [employer] for 6 years, was honorably discharged, however could not get [employer] due to not being deployed. 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 ED Physician put a Head CT order in due to AMS. If both of these come back with no significant findings, it is felt there may be secondary gain since patient is not able to return to his mother's home, and patient will be considered psychiatrically cleared and recommendation is what it was from earlier today: Provided patient with outpatient resource list with emphasis on both [facility] numbers for detox placement, emphasis on [facility] for intensive outpatient SA treatment and medication management (documented he should walk in [facility] Sunday morning, documented walk-ins cam take place M- F from [phone]). Also provided homeless residential information since mother said he was not welcome back. She stated there are friends and family that would probably take him in. He was encouraged to make phone calls before discharge. Also provided application for [facility], as well as [facility] in [place] with direct phone number to [facility] for referral. Mother aware of plan to discharge and patient would have resource information. Consulted with Dr. Johnson regarding the management and care of patient. ED Physician in agreement with recommendations.
[2017-02-18 17:34] LABS: ABSOLUTE EOSINOPHILS # (AUTO) 0.3 10^3/uL (0.0-0.6); ABSOLUTE LYMPHOCYTES (AUTO) 2.1 10^3/uL (0.5-4.7); ABSOLUTE MONOCYTES (AUTO) 0.7 10^3/uL (0.1-1.4); ABSOLUTE NEUT (AUTO) 4.8 10^3/uL (1.7-8.2); BASOPHILS % (AUTO) 0.5 % (0-2); EOSINOPHILS % (AUTO) 3.2 % (0-6); HEMATOCRIT 40.8 % (37.9-51.0); HEMOGLOBIN 13.9 g/dL (13.5-17.0); HGB HCT DIFFERENCE 0.9; LYMPHOCYTES % (AUTO) 26.5 % (13-45); MEAN CORPUSCULAR HEMOGLOBIN 30.1 pg (27.0-33.4); MEAN CORPUSCULAR HGB CONC 34.1 g/dL (32.0-36.0); MEAN CORPUSCULAR VOLUME 88 fl (80-97); MONOCYTES % (AUTO) 8.8 % (3-13); RED BLOOD COUNT 4.62 10^6/uL (4.35-5.55); RED CELL DISTRIBUTION WIDTH 13.4 % (11.5-14.0); WHITE BLOOD COUNT 7.9 10^3/uL (4.0-10.5)
[2017-02-18 17:59] LABS: ALANINE AMINOTRANSFERASE 50 U/L (21-72); ALBUMIN 4.7 g/dL (3.5-5.0); ALKALINE PHOSPHATASE 73 U/L (38-126); ANION GAP 14 (5-19); ASPARTATE AMINO TRANSFERASE 22 U/L (17-59); BILIRUBIN,DIRECT 0.3 mg/dL (0.0-0.4); BILIRUBIN,TOTAL 0.9 mg/dL (0.2-1.3); BLOOD UREA NITROGEN 10 mg/dL (7-20); CALCIUM 9.7 mg/dL (8.4-10.2); CARBON DIOXIDE 26 mmol/L (22-30); CHLORIDE 105 mmol/L (98-107); CREATININE RESULT 1.15 mg/dL (0.52-1.25); GLUCOSE 82 mg/dL (75-110); POTASSIUM 3.7 mmol/L (3.6-5.0); SODIUM 145.3 mmol/L (137-145); TOTAL PROTEIN 7.3 g/dL (6.3-8.2)
[2017-02-18 18:00] LABS: ALCOHOL < 10 mg/dL (NONE DETECTED)
--- NOTE | 2017-02-18 18:06 | RADIOLOGY REPORT (SQ) ---
EXAM DESCRIPTION: CT HEAD WITHOUT COMPLETED DATE/TIME: 02/18/2017 5:47 pm REASON FOR STUDY: Acute altered mental status COMPARISON: None. TECHNIQUE: Axial images acquired through the brain without intravenous contrast. Images reviewed wi th bone, brain and subdural windows. Images stored on PACS. All CT scanners at this facility use dose modulation, iterative reconstruction, and/or weight based d osing when appropriate to reduce radiation dose to as low as reasonably achievable (ALARA). [facility]: Dose Right [facility]: CareDose [facility]: Dose Right [facility]: Teradose 4D [facility]: Smart [employer] RADIATION DOSE: CT Rad equipment meets quality standard of care and radiation dose reduction techniq ues were employed. CTDIvol: 64.6 mGy. DLP: 1163 mGy-cm. mGy. LIMITATIONS: None. FINDINGS: VENTRICLES: Normal size and contour. CEREBRUM: No masses. No hemorrhage. No midline shift. No evidence for acute infarction. Normal gra y/white matter differentiation. No areas of low density in the white matter. CEREBELLUM: No masses. No hemorrhage. No alteration of density. No evidence for acute infarction. EXTRAAXIAL SPACES: No fluid collections. No masses. ORBITS AND GLOBE: No intra- or extraconal masses. Normal contour of globe without masses. CALVARIUM: No fracture. PARANASAL SINUSES: No fluid or mucosal thickening. SOFT TISSUES: No mass or hematoma. OTHER: No other significant finding. IMPRESSION: NORMAL BRAIN CT WITHOUT CONTRAST. EVIDENCE OF ACUTE STROKE: NO. COMMENT: Quality ID # [id number]: Final reports with documentation of one or more dose reduction techniques (e.g., Automated exposure control, adjustment of the mA and/or kV according to patient size, use of iterative reconstruction technique) TECHNICAL DOCUMENTATION: JOB ID: [id number] [employer]- All Rights Reserved
[2017-02-18 18:16] LABS: APPEARANCE,URINE SLIGHTLY-CLOUDY; BILIRUBIN,URINE NEGATIVE (NEGATIVE); GLUCOSE, URINE NEGATIVE (NEGATIVE); KETONES,URINE NEGATIVE (NEGATIVE); LEUKOCYTE ESTERASE,URINE NEGATIVE (NEGATIVE); NITRITE,URINE NEGATIVE (NEGATIVE); PROTEIN,URINE NEGATIVE (NEGATIVE); UROBILINOGEN,URINE NEGATIVE mg/dL (<2.0)
[2017-02-18 18:28] LABS: URINE BARBITURATES SCREEN UNCONFIRMED POSITIVE; URINE METHADONE SCREEN NEGATIVE; URINE OPIATES LOW NEGATIVE; URINE PHENCYCLIDINE SCREEN NEGATIVE
--- NOTE | 2017-02-19 06:10 | EKG REPORT ---
SEVERITY:- NORMAL ECG - SINUS RHYTHM : Confirmed by: Chelsea King MD 19-Feb-2017 06:09:07
--- NOTE | 2017-02-19 07:42 | PSYCHOLOGICAL NOTE ---
Psych Note - Psych Note Psych Note: Patient is a 26 year old male who returned to the ED last evening via mother after an afternoon discharge from the ED for which that visit was for an overdose with likely intention of getting high given substance abuse history and current. Overnight nurse identified patient had been clear, alert, and oriented. He informed the patient drug safety coordinator he had a court appearance this morning. Overheard him on the phone with his mother at which time his speech was clear, he was able to carry on dialogue conversation, and his eyes were no longer bloodshot or heavy. He was informed he should call [facility] back per their instructions after he called yesterday and request referral to [facility], as well as follow up with [facility] for the Substance Abuse Intensive Outpatient (SAIOP)program. He reported he has an appointment scheduled for 02/23/17. He was provided education on the importance of getting follow up treatment glendy after a crisis and reminded he could walk in today. Patient's UDS was not positive for anything different than his UDS from Sunday evening and Head CT was unremarkable with no significant findings. 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 Recommendation to move forward with plan of care for discharge: Provided patient with outpatient resource list with emphasis on both [facility] numbers for detox placement, emphasis on [facility] for intensive outpatient SA treatment and medication management (documented he should walk in [facility] Sunday morning, documented walk-ins cam take place M- from [phone]). Also provided homeless fci information since mother said he was not welcome back. She stated there are friends and family that would probably take him in. He was encouraged to make phone calls before discharge. Also provided application for [facility], as well as [facility] in [place] with direct phone number to [facility] for referral. Mother confirmed she has the outpatient resource information provided at yesterday afternoon discharge. Patient stated his mother has all of his medications. Consulted with Dr. Johnson regarding the management and care of patient. ED Physician in agreement with recommendations.
[2017-02-19 07:57] VITALS: BP 131/74
== END 2017-02-19 08:09 | disposition home or self-care (01) ==
LOC: ER 15:02
DX: R41.82 Altered mental status, unspecified (principal); F19.10 Other psychoactive substance abuse, uncomplicated; F13.99 Sedative, hypnotic or anxiolytic use, unspecified with unspecified sedative, hypnotic or anxiolytic-induced disorder; F17.200 Nicotine dependence, unspecified, uncomplicated
CPT/HCPCS: 36415; 70450; 80053; 80307; 81001; 84443; 85025; 93005; 93010; 99285